=== PATIENT | female | born 1990 | race American Indian/Alaskan Native ===

== ENCOUNTER 2016-12-15 22:07 | Emergency (ER) | payer SELFPAY ==
[2016-12-15 22:25] VITALS: BP 143/94
== END 2016-12-15 22:30 | disposition left against medical advice (07) ==
LOC: ED 22:07
DX: M54.9 Dorsalgia, unspecified (principal); Z53.21 Procedure and treatment not carried out due to patient leaving prior to being seen by health care provider

== ENCOUNTER 2017-01-12 09:37 | Emergency (ER) | payer MEDICAID ==
[2017-01-12 09:49] VITALS: BP 117/61
[2017-01-12 10:32] LABS: Basophils % (Auto) 0.7 % (0.0-1.8); Eosinophils % (Auto) 1.5 % (0.0-4.3); Hematocrit 36.5 % (30.3-42.9); Hemoglobin 11.9 gm/dl (10.1-14.3); Mean Corpuscular HGB Conc 33 % (30-34); Mean Corpuscular Volume 76 fl (79-97); Platelet Count 304 K/mm3 (140-440); Red Cell Distribution Width 16.5 % (13.2-15.2)
[2017-01-12 10:34] LABS: Mean Corpuscular Hemoglobin 25 pg (28-32)
[2017-01-12 10:40] LABS: Anion Gap 14 mmol/L; BUN/Creatinine Ratio 17; Blood Urea Nitrogen 10 mg/dL (7-17); Calcium 8.6 mg/dL (8.4-10.2); Carbon Dioxide 25 mmol/L (22-30); Chloride 104.2 mmol/L (98-107); Glucose 96 mg/dL (65-100); Potassium 4.3 mmol/L (3.6-5.0); Sodium 139 mmol/L (137-145)
== END 2017-01-12 13:10 | disposition left against medical advice (07) ==
LOC: ED 09:37
DX: R07.9 Chest pain, unspecified (principal); R06.02 Shortness of breath; Z53.21 Procedure and treatment not carried out due to patient leaving prior to being seen by health care provider
CPT/HCPCS: 36415; 80048; 84484; 85025; 93005; 93010